=== PATIENT | female | born 1960 | race Caucasian/White ===

== ENCOUNTER 2016-11-02 10:40 | Emergency (ER) | payer OTHER ==
[2016-11-02 11:01] VITALS: BP 131/84; PULSE 95; RESP 18; TEMP 98.2; O2SAT 97
--- NOTE | 2016-11-02 11:15 | UCPHY ---
H & P Time Seen by Provider: 11/02/16 11:02 Patient Type: New HPI/ROS: This patient has a 3 week history of chest congestion. She reports that she feels that chest congestion is worsening but over the past week. She had a fever the 1st week or so that has since diminished or resolved. She notes no clear exacerbating or alleviating factors with her symptoms. She does have mild associated nasal congestion. She has decreased sleep due to the coughing. ROS: No recent high fevers or chills. No other constitutional symptoms. HEENT : No facial pain. She reports no confusion or headache. Pulmonary: No pleuritic pain or respiratory distress cardiovascular: No lightheadedness or lower extremity swelling. GI: No nausea vomiting. Neuro: No complaints 7 point ROS is otherwise negative Past Medical/Surgical History: Otherwise healthy Smoking Status: Never smoked Physical Exam: Physical Exam Vital signs are normal. General: No acute distress HEENT: Nose: Clear discharge bilaterally. No sinus tenderness to percussion. Ears: External canals and tympanic membranes are clear with no erythema or abnormal findings bilaterally. Oropharynx: No erythema or exudates. No dysphonia. No drooling or stridor. Eyes: Pupils equal and react to light. Extraocular motions are intact. Lungs: Patient is mild expiratory wheeze and slight rhonchi bilaterally. No respiratory distress. Cardiac: Regular rate and rhythm with no murmur gallop or rub Skin: No rash or pallor. Neuro: Alert with no focal deficits noted. Initial differential diagnosis: Viral bronchitis, bacterial bronchitis , doubt pneumonia Constitutional: Initial Vital Signs Temperature (C) 36.8 C 11/02/16 10:59 Heart Rate 95 11/02/16 10:59 Respiratory Rate 18 11/02/16 10:59 Blood Pressure 131/84 H 11/02/16 10:59 O2 Sat (%) 97 11/02/16 10:59 O2 Delivery Mode Room Air Allergies/Adverse Reactions: codeine Allergy (Verified 11/02/16 10:57) Home Medications: Medication Instructions Recorded LEVOTHYROXINE SODIUM 10/27/13 Albuterol Hfa Anes Only [Proair 2 puffs IH Q4 PRN #1 mdi 11/02/16 Hfa Icu (*)] Azithromycin [Zithromax] 250 mg PO DAILY #6 tab 11/02/16 Cream Base No. 9 [Hrt Base] 11/02/16 Fluticasone Hfa 220 Mcg [Flovent 2 puffs IH DAILY #1 mdi 11/02/16 220 MCG Hfa MDI (*)] Venlafaxine Xr [Effexor Xr 75MG 11/02/16 (*)] MDM/Departure - Depart Disposition: Home, Routine, Self-Care Clinical Impression: Bronchitis Condition: Good Instructions: Acute Bronchitis (ED) Additional Instructions: Diagnosis: Acute bronchitis Plan: Humidifier Albuterol inhaler with spacer for cough, wheeze or shortness of breath Zithromax antibiotic Start the Flovent steroid inhaler in addition if her symptoms are not resolving over the next week with the albuterol and Zithromax. Return for any significant worsening despite the treatment plan. Prescriptions: Albuterol Hfa Anes Only [Proair Hfa Icu (*)] 2 puffs IH Q4 PRN #1 mdi PRN Reason: Wheezing Azithromycin [Zithromax] 250 mg PO DAILY #6 tab Fluticasone Hfa 220 Mcg [Flovent 220 MCG Hfa MDI (*)] 2 puffs IH DAILY #1 mdi Referrals: Nemo Rivera [Primary Care Provider] - As per Instructions - PQRS PQRS Measurement: NA
== END 2016-11-02 11:20 | disposition home or self-care (01) ==
LOC: CED 10:40
DX: J20.9 Acute bronchitis, unspecified (principal)
CPT/HCPCS: G0463-PO